=== PATIENT | male | born 1995 | race Two or more races ===

== ENCOUNTER 2017-07-14 02:27 | Emergency (ER) | payer MEDICAID ==
[~2017-07-14] VITALS: Ht 175.3 cm; Wt 54.2 kg
[2017-07-14 03:14] LABS: HEMOGLOBIN 15.8 g/dL (13.7-18.0); WHITE BLOOD COUNT 9.7 x10^3/uL (3.4-10)
[2017-07-14 03:25] LABS: BLOOD UREA NITROGEN 16 mg/dL (7-18)
[2017-07-14 03:29] LABS: ASPARTATE AMINO TRANSFERASE 13 U/L (15-37)
[2017-07-14 04:42] VITALS: BP 114/74
== END 2017-07-14 04:43 ==
LOC: ED 04:34
DX: L02.211 Cutaneous abscess of abdominal wall (principal)
CPT/HCPCS: 36415; 76857; 80053; 85025; 99285

== ENCOUNTER 2018-02-01 18:22 | Emergency (ER) | payer MEDICAID ==
[~2018-02-01] VITALS: Ht 175.3 cm; Wt 56.4 kg
[2018-02-01 18:24] VITALS: BP 112/72
[2018-02-01] MEDS ORDERED: FLUORESCEIN OPHTHALMIC 1 MG STRIP EACHEYE ONE (19:00)
[2018-02-01] MEDS ORDERED: PROPARACAINE OPHTH 0.5%, 15ML EACHEYE ONE (19:00)
== END 2018-02-01 19:40 | disposition home or self-care (01) ==
LOC: ED 19:33
DX: S05.01XA Injury of conjunctiva and corneal abrasion without foreign body, right eye, initial encounter (principal); X58.XXXA Exposure to other specified factors, initial encounter; Y93.89 Activity, other specified; Y92.89 Other specified places as the place of occurrence of the external cause; Y99.2 Volunteer activity
CPT/HCPCS: 99283

== ENCOUNTER 2018-08-07 23:05 | Emergency (ER) | payer MEDICAID | END 2018-08-07 23:36 | disposition left against medical advice (07) | LOC: ED 23:30 | DX: R05 Cough (principal); Z53.21 Procedure and treatment not carried out due to patient leaving prior to being seen by health care provider ==